=== PATIENT | female | born 1995 | race Two or more races ===

== ENCOUNTER 2024-08-31 11:39 | Emergency (ER) | payer MEDICAID, SELFPAY ==
[2024-08-31 11:51] VITALS: BP 122/76; PULSE 65; RESP 16; TEMP 36.9; O2SAT 100; BMI 30.4
--- NOTE | 2024-08-31 11:58 | XR_ITS ---
Examination: Complete OB ultrasound, less than 14 weeks, transabdominal Date and time of exam: September 01, 1999 2512 0 5:00 PM INDICATIONS: Pelvic pain and discharge 2 weeks Technique: Obstetrical ultrasound images less than 14 weeks performed via transabdominal imaging Findings: A normal shaped single intrauterine gestation is present in the uterus. CRL 1.4 cm corresponds to 7 weeks 5 day gestational age, cardiac motion 171 BPM Ultrasonographic survey of visible and placental structures unremarkable. Amniotic fluid volume appears appropriate for this estimated gestational age. Right ovary 2.9 cm arterial flow Left ovary 2.8 cm arterial flow IMPRESSION: Viable intrauterine gestation 7 weeks 5 days.
--- NOTE | 2024-08-31 11:59 | EDNOTE_ITS ---
<Statement entered by Clementine Bartlett MD - 09/09/24 19:14> As co-signing physician, I was present and available for consult prn. I concur with the plan and care as documented by the midlevel provider. ED OB Contraction Preg RMI/HPI General Chief complaint: General Adult/Misc Complain Stated complaint: PELVIC PAIN, CLEAR STICKY DISCHARGE; PREG Time Seen by Provider: 08/31/24 11:55 Source: patient Arrival date/time: 08/31/24 11:39 29-year-old female with no known medical history presents to the emergency room with a chief complaint of pelvic pain, clear vaginal discharge, vaginal spotting and dysuria x 2 days. Patient is currently 8 weeks and she is a . Mode of arrival: ambulatory Limitations: no limitations Related Data Allergies Allergy/AdvReac Type Severity Reaction Status Date / Time strawberry Allergy Severe Anaphylaxis Verified 08/31/24 11:46 Review of Systems Review of Systems Systems Reviewed: All systems reviewed, normal except as documented Constitutional Constitutional: Reports system reviewed and no additional complaints, except as documented, Denies fatigue, Denies fever(s), Denies headache(s) and Denies weakness Eyes Eyes: Reports system reviewed and no additional complaints, except as documented, Denies blurry vision and Denies change in vision ENT Ears, Nose, Mouth, and Throat: Reports system reviewed and no additional complaints, except as documented, Denies otalgia, Denies headache(s), Denies nasal congestion, Denies throat swelling and Denies vertigo Cardiovascular Cardiovascular: Reports system reviewed and no additional complaints, except as documented, Denies chest pain, Denies dyspnea and Denies dyspnea on exertion Respiratory Respiratory: Reports system reviewed and no additional complaints, except as documented, Denies chest congestion, Denies cough, Denies dyspnea, Denies dyspnea on exertion and Denies wheezing Gastrointestinal Gastrointestinal: Reports system reviewed and no additional complaints, except as documented, Denies abdominal pain, Denies cramping, Denies nausea and Denies vomiting Genitourinary Genitourinary: Reports system reviewed and no additional complaints, except as documented, Reports abnormal vaginal bleeding, Reports dysuria, Reports pelvic pain and Reports vaginal discharge Musculoskeletal Musculoskeletal: Reports system reviewed and no additional complaints, except as documented and Denies back pain Integumentary/Breasts Skin/Breast: Reports system reviewed and no additional complaints, except as documented and Denies wounds Neurologic Neurologic: Reports system reviewed and no additional complaints, except as documented, Denies confusion, Denies headache(s), Denies lack of coordination, Denies vertigo and Denies weakness Psychiatric Psychiatric: Reports system reviewed and no additional complaints, except as documented, Denies anxiety, Denies confusion, Denies depression, Denies paranoia, Denies suicidal ideation and Denies tactile hallucinations Endocrine Endocrine: Reports system reviewed and no additional complaints, except as documented and Denies fatigue Hematologic/Lymphatic Hematologic/Lymphatic: Reports system reviewed and no additional complaints, except as documented and Denies lymphadenopathy Allergic/Immunologic Allergic/Immunologic: Reports system reviewed and no additional complaints, except as documented, Denies throat swelling, Denies urticaria and Denies wheezing Past Medical History Social History SMOKING STATUS: Never smoker ED Exam General Limitations: Present no limitations General appearance: Present alert and in no apparent distress Head Head exam: Present atraumatic Eye Eye exam: Present normal appearance, PERRL and EOMI ENT ENT exam: Present normal exam, normal oropharynx and mucous membranes moist Neck Neck exam: Present normal inspection, full ROM and trachea midline Chest Chest inspection: Present normal inspection and symmetric chest wall rise Respiratory Respiratory exam: Present normal lung sounds bilaterally Cardiovascular Cardiovascular exam: Present regular rate, normal rhythm and normal heart sounds Abdominal Exam Abdominal exam: Present soft and normal bowel sounds Extremities Exam Extremities exam: Present normal inspection and full ROM Back Exam Back exam: Present normal inspection and full ROM Neurological Exam Neurological exam: Present alert, oriented X3 and CN II-XII intact Psychiatric Psychiatric exam: Present normal affect and normal mood Skin Skin exam: Present warm, dry, intact and normal color Course Quality Measures none Orders Category Date Time Status US OB <= 14 weeks fetus Stat Exams 08/31/24 11:58 Completed ABO/RH Type Stat Lab 08/31/24 12:26 Completed Beta HCG,Quantitative Stat Lab 08/31/24 12:26 Completed CBC Stat Lab 08/31/24 12:26 Completed CMP [Comprehensive Metabolic Panel] Stat Lab 08/31/24 12:26 Completed UA [Urinalysis] Stat Lab 08/31/24 12:20 Completed Vital Signs Vital signs: Vital Signs Temperature 98.4 F 08/31/24 11:51 Pulse Rate 65 08/31/24 11:51 Respiratory Rate 16 08/31/24 11:51 Blood Pressure 122/76 08/31/24 11:51 Pulse Oximetry (%) 100 08/31/24 11:51 Oxygen Delivery Method Room Air 08/31/24 11:51 O2 saturation 100% within normal limits Vaginal Bleeding MDM Narrative MDM Narrative: 29-year-old female with no known medical history presents to the emergency room with a chief complaint of pelvic pain, clear vaginal discharge, vaginal spotting and dysuria x 2 days. Patient is currently 8 weeks and she is a . Patient is hemodynamically stable and in no apparent distress Patient has a soft nontender abdomen. Patient has some mild pelvic pain bilaterally. Ultrasound OB was completed and shows a viable intrauterine gestation at 7 weeks and 5 days. heart tones are 171 bpm. hCG levels are 139,680 Patient was discharged and educated to follow-up with primary care provider in the next 24 to 48 hours and return to the emergency room for any evidence of worsening signs or symptoms Patient data External records reviewed:: [facility] previous records Clinical information provided by:: patient Social determinants that could affect healthcare access:: none Patient has the following chronic illnesses:: No chronic illness How is presenting disease/condition affected by chronic disease/condition?: no chronic disease Evaluation data The following diagnostics were reviewed and interpreted by me:: lab results and radiology exam(s) Lab and/or radiology exams considered but not ordered:: Labs radiology exams considered in order Interpretation Summary: OB ultrasound-Findings: A normal shaped single intrauterine gestation is present in the uterus. CRL 1.4 cm corresponds to 7 weeks 5 day gestational age, cardiac motion 171 BPM Ultrasonographic survey of visible and placental structures unremarkable. Amniotic fluid volume appears appropriate for this estimated gestational age. Right ovary 2.9 cm arterial flow Left ovary 2.8 cm arterial flow IMPRESSION: Viable intrauterine gestation 7 weeks 5 days. Medications / Prescriptions Medications or Prescriptions considered but not ordered:: Medication not given Medication administrations:: Medication not given Consultations Consultation(s) initiated? (list below): No Diagnosis Vaginal Bleeding Differential Diagnosis: threatened , dysfunctional u terine bleeding, incomplete , ectopic without intrauterine and vaginal bleeding Most likely diagnosis given after review of the tests above:: Vaginal spotting Admission Indicated Admission indicated?: not indicated Admission Request Was there a request for admission?: No Disposition Plan Disposition Plan: Discharge Discharge Attestation Discharge Attestation: The patient and all family members were given an opportunity to ask questions and understood the discharge instructions. Discharge instructions specifically effects, indications for sooner follow up or return to the emergency department, and the expected course of current diagnosis. Patient condition: Stable Discharge Plan Plan Patient Disposition: HOME (Self Care) Discharge Disposition comment: Stable Prescriptions/Referrals Referrals: No Primary/Family,Physician [Primary Care Provider] - In 1 week Problem List Clinical Impression: Vaginal spotting Patient/Caregiver Discharge Instructions Education Materials: ED Dysfunctional Uterine Bleeding Additional Instructions: Por favor, acuda a feliz ginec?logo/obstetra en las pr?ximas 24 a 48 horas. En beryl momento, feliz embarazo est? en buen estado y tiene 7 semanas y 5 d?as. Karina latidos card?acos son de 171 latidos por minuto, lo cual est? dentro de los l?mites normales. Feliz nivel de hCG en beryl momento es de 139,860. Si observa cualquier signo de empeoramiento de los signos o s?ntomas, acuda a urgencias de inmediato. Print Language: Grenadian Stand Alone Forms: Olivia Award Info., Patient Portal Info Letter PA/COMBUSTION ENGINEER Supervising Physician PA/COMBUSTION ENGINEER Supervising Physician: Dr. BARTLETT
[2024-08-31 12:36] LABS: Basophils # (Auto) 0.0 Thou/mm3 (0.0-0.2); Basophils % (Auto) 0 % (0-2.5); Eosinophils # (Auto) 0.0 Thou/mm3 (0.0-0.5); Eosinophils % (Auto) 0 % (0-10); Hematocrit 37.7 % (36.0-46.0); Hemoglobin 12.7 g/dL (12.0-16.0); Immature Granulocytes Auto 0.09 Thou/mm3 (0.00-0.00); Lymphocytes # (Auto) 2.6 Thou/mm3 (1.0-4.8); Lymphocytes % (Auto) 17 % (10-50); Mean Corpuscular HGB Conc 33.7 g/dl (31.0-37.0); Mean Corpuscular Hemoglobin 27.2 pg (25.0-35.0); Mean Corpuscular Volume 81 fL (80-100); Monocytes # (Auto) 1.0 Thou/mm3 (0.0-0.8); Monocytes % (Auto) 7 % (0-12); Neutrophils # (Auto) 11.2 Thou/mm3 (1.8-7.7); Neutrophils % (Auto) 75 % (37-80); Nucleated Red Blood Cell # 0.00 Thou/mm3 (0.00-0.00); Nucleated Red Blood Cell % 0 /100 WBC (0); Platelet Count 266 Thou/mm3 (140-440); RDW Standard Deviation 41.1 fL (36.4-46.3); Red Blood Count 4.67 Miln/mm3 (4.00-5.20); White Blood Count 15.0 Thou/mm3 (3.6-11.0)
[2024-08-31 12:47] LABS: Collection Type, Urine Clean Catch
[2024-08-31 13:00] LABS: Alanine Aminotransferase 31 U/L (10-49); Albumin, Serum 4.4 gm/dL (3.5-5.0); Albumin/Globulin Ratio 1.8 (1.2-2.2); Alkaline Phosphatase 117 U/L (46-116); Anion Gap 6 (7-16); Aspartate Amino Transferase 21 U/L (0-34); BUN/Creatinine Ratio 8 Ratio (12-20); Bilirubin,Total 0.5 mg/dL (0.3-1.2); Blood Urea Nitrogen 5 mg/dL (9-23); Calcium 9.8 mg/dL (8.3-10.6); Calcium (Corrected) 9.8 mg/dL (8.5-10.1); Carbon Dioxide 26.1 mMol/L (20.0-31.0); Chloride 106 mMol/L (98-107); Creatinine (Component) 0.6 mg/dL (0.6-1.3); Estimated Creatinine Clearance 143.1 mL/min (>60); Globulin 2.4 gm/dL (2.3-3.5); Glucose 81 mg/dL (74-106); Osmolality,Calculated 271 (275-295); Potassium 4.3 mMol/L (3.4-5.1); Sodium 138 mMol/L (136-145); Total Protein 6.8 gm/dL (5.7-8.2); eGFR > 60 See Note
[2024-08-31 13:12] LABS: Bilirubin,Urine Negative (Negative); Blood,Urine Negative (Negative); Color,Urine Lt-Yellow (Lt Yel-Yel); Glucose, Urine Negative (Negative); Ketones,Urine Negative (Negative); Leukocyte Esterase,Urine Negative (Negative); Nitrite,Urine Negative (Negative); PH,Urine 7.5 (5.0-7.0); Protein,Urine Negative (Neg - Trace); RBC,Urine 1 /hpf (0-3); Specific Gravity,Urine 1.010 (1.001-1.035); Squamous Epithelial Cell,Urine 14 /hpf (0-5); Urobilinogen,Urine Negative mg/dL (0.0-1.0); WBC,Urine 4 /hpf (0-5)
[2024-08-31 13:14] LABS: Clarity,Urine Hazy (Clear/Hazy)
[2024-08-31 13:48] LABS: Beta HCG,Quantitative 139860 mIU/mL (<5.0)
== END 2024-08-31 14:53 | disposition home or self-care (01) ==
PROVIDERS: Nurse Practitioner Family; Emergency Provider Emergency Medicine
DX: O20.9 Hemorrhage in early pregnancy, unspecified (principal); Z3A.08 8 weeks gestation of pregnancy
CPT/HCPCS: 36415; 76801; 80053; 81001; 84702; 85025; 86900; 86901; 99284

== ENCOUNTER 2025-02-09 14:34 | Outpatient (AMB) | payer MEDICAID, SELFPAY ==
[2025-02-09 14:55] VITALS: BP 126/75; PULSE 86; RESP 16; TEMP 36.6; O2SAT 97; BMI 32.8
--- NOTE | 2025-02-09 14:55 | AMB.OBINITIA ---
Vital Signs 02/09/25 14:55 Height 1.63 m Height Method Stated Weight 87.203 kg Weight Measurement Method Standing Scale BMI 32.8 BP 126/75 Blood Pressure Source Automatic Cuff Blood Pressure Location Left Upper Arm Position Sitting Respiration 16 Pulse 86 Pulse Source Monitor Temp 97.8 F Temp Source Oral Pulse Oximetry (%) 97 Oxygen Delivery Method Room Air Allergies/Home Meds Allergies & Medications Allergies strawberry Allergy (Severe, Verified 02/09/25 14:56) Anaphylaxis Medication Reconciliation vitamins-iron fumarate 66 mg iron-folic acid 1 mg tablet tab PO 02/09/25 [History Confirmed 02/09/25] Intake Visit Data Collection New Patient or Established: Established Patient (seen at [facility] within 3 years) Reason for Visit:: TRANSFER INITIAL CARE Seen by Clinical Staff ONLY (RN/MA): No Negative Retoucher Required: Yes Negative Retoucher's name/title: VALENTIN GATES Do You Feel Safe at Home: Yes Authorities Contacted: N/A PCP or OBGYN visit in last 3 months: Yes Hx Now: Yes Are you currently on any form of Control: No Last menstrual period: 07/02/24 Pain Present Currently: No Pain Scale Used: Parada-Crenshaw/Numerical Pain scale:: 0 Smoking Status Smoking Status: Never smoker Immunizations Flu Vaccine in the Last 12 Months: No Flu Vaccine Exclusion Criteria: Refused by Patient Questionnaires Covid-19 Vaccine Questionnaire Has patient been vacinated for Covid-19 Have you been vacinated for Covid-19: Yes PHQ-9 PHQ-2 Over the last 2 weeks, how often have you been bothered by any of the following problems? 1. Little interest or pleasure in doing things: not at all 2. Feeling down, depressed, or hopeless: not at all Total score: 0 PHQ-9 3. Trouble falling or staying asleep, or sleeping too much: Not at all 4. Feeling tired or having little energy: Not at all 5. Poor appetite or overeating: Not at all 6. Feeling bad about yourself - or that you are a failure or have let yourself or your family down: Not at all 7. Trouble concentrating on things, such as reading the newspaper or watching television: Not at all 8. Moving or speaking so slowly that other people could have noticed? - Or the opposite - being so fidgety or restless that you have been moving around a lot more than usual: not at all 9. Thoughts that you would be better off or of hurting yourself in some way: Not at all Total score: 0 Source: Developed by Drs. Vin Seo, Sharron Tong, Mike Zhao and colleagues, with an educational ambreen from [employer]. Depression screen completed yes Social History Living Situation History Marital Status: Lives With: Family Housing: House Tobacco History Smoking Status: Never smoker Second Hand Smoke Exposure: No Alcohol History Alcohol Intake: Never Domestic Abuse History Do You Feel Safe at Home: Yes History of Present Illness HPI Narrative Transfer of care from Dr. Kirkland, copious yellow-green vaginal discharge with burning Patient is a at 32 weeks and 0 days gestation, presenting for transfer of care from Dr. Kirkland. She reports copious amounts of yellow-green vaginal discharge with associated burning sensation. She denies any lesions on her perineum. A vaginal swab was obtained during today's visit for evaluation of the discharge. She has a history of one previous resulting in section delivery. Her first was complicated by gestational diabetes. Regarding her gestational diabetes management, the patient is not currently checking her blood sugars at home and requires monitoring to ensure glycemic control is at goal. Her current has been complicated by gestational diabetes. Medical History: - Gestational diabetes Surgical History: - section - Appendectomy Obstetric History: - GPAL: A0 L1 - First : section delivery, complicated by gestational diabetes OB Initial Visit OB Flowsheet OB Flowsheet Initial Weight: Not Recorded Date <del>?</del> EGA Weight BP Alb Glu CTX Pres Fundal ht FHR Mov Dilation Station Effacement Hx Notes Visit Note 02/09/25 <del>?</del> 32w 0d 87.203 kg 126/75 Pl see notes Menstrual History Menstrual reliability: definite Flow: normal Menstrual regularity: regular Monthly: Yes Age at menarche: 13 On control pills at conception: No Associated symptoms (LMP): Denies amenorrhea, nausea, vomiting, fatigue, breast tenderness, urinary frequency, irritability, bloating or other OB History : 2 Para: 1 # of Living Children: 1 Delivery History 1st : Child's name: KEYLANI date: 12/25/18 sex: female Gestational age at delivery (weeks): 39 Delivery type: Delivery complications: NONE History of depression before or after : No Infection History & Risk Evaluation History of STDs: none Genetic Screening & History Genetic Screening/Teratology Counseling - Includes patient, baby's father, or anyone in either family with: 1. Patient's age 35 years or older as of estimated date of delivery: No 2. Thalassemia (Central African, Azeri, Mediterranean, or Background); MCV less than 80: No 3. Neural Tube Defect (Meningomyelocele, Spina Bifida, or Anencephaly): No 4. Congenital Heart Defect: No 5. Down Syndrome: No 6. Peewee-Sachs (Ashkenazi [place]ian, Cajun, Barbadian [place]): No 7. Joaquim Disease (Ashkenazi Presy[place]ian): No 8. Familial Dysautonomia (Ashkenazi [place]ian): No 9. Sickle Cell Disease or Trait (): No 10. Hemophilia or other blood disorders: No 11. Muscular Dystrophy: No 12. Cystic Fibrosis: No 13. [place]'s Chorea: No 14. Mental Retardation/Autism: No 15. Other inherited genetic or chromosomal disorder: No 16. Maternal Metabolic Disorder (EG,TYPE 1 Diabetes, PKU): No 17. Patient or baby's father had a child with defects not listed above: No 18. Recurrent loss or a stillbirth: No 19. Medications (including supplements, vitamins, herbs or otc drugs)/illicit/recreational drugs/alcohol since last menstrual period: No 20. Any other: No Infection History 1. Live with someone with TB or exposed to TB: No 2. Rash or viral illness since last menstrual period: No 3. Hepatitis B,C: No Other (see comments) Source: [employer] Review of Systems Constitutional Constitutional: Denies fatigue Gastrointestinal Gastrointestinal: Denies bloating, Denies nausea and Denies vomiting Genitourinary Genitourinary: Denies amenorrhea and Denies urinary frequency Psychiatric Psychiatric: Denies irritability Endocrine Endocrine: Denies fatigue Exam General General Appearance: alert, in no apparent distress and healthy appearing Head Head exam: atraumatic Neck Neck exam: Present normal inspection and trachea midline Chest Chest inspection: Present normal inspection and symmetric chest wall rise External exam: Present normal external exam; Absent tenderness Neuro Neurological exam: Present oriented X3 Psych Psychiatric exam: Present normal affect and normal mood Office Procedures [facility] Clinic LOC & Office Proc's Nursing/Assessment Patient Status: Established Patient OB Clinic Nursing Assessment: Medication Reconciliation, Update PMH in EMR and Vital Signs OB Clinic Coordination of Care: Complex Care and Chronic Disease 1-5, Consent,records obtained, informed consent, Education Simp Pt/Fam, 1 Ins Authorization, Lab and Imaging orders, Results/Orders obtained and Staff clarify orders Special Needs: Heart tones Established Patient Charge Established Patient Point Assignment: 150 Established Patient Point Charge: EP Level 4 (120-155) Assessment & Plan Diagnosis / Problem List (1) Maternal care for low transverse scar from previous delivery: Status: Acute (2) Supervision of high risk , unspecified, third trimester: Status: Acute (3) Gestational diabetes mellitus (GDM) in childbirth, diet controlled: Status: Acute Plan , intrauterine, 32 weeks 0 days Assessment: Patient is at 32 weeks and 0 days gestation with estimated due date of April 06, 2025 based on last menstrual period of June 30, 2024, which is consistent with early ultrasound. She has a history of one prior section. Plan: - Schedule repeat section for March 30 (7 days before due date) - Referral request submitted for March 30 section, awaiting hospital confirmation - Follow-up in 2 weeks with appointment scheduling History of gestational diabetes Assessment: Patient has a history of gestational diabetes. Recent one-hour glucose tolerance test was 150 mg/dL with A1c of 5.1%. Plan: - Initiate home glucose monitoring with meter to be provided - Check blood glucose 4 times daily: fasting upon waking and 1 hour after each meal - Document glucose readings on provided log sheets - Review glucose logs at next visit in 2 weeks Vaginal discharge Assessment: Patient reports copious yellow-green vaginal discharge with associated burning sensation. Physical examination revealed yellow-green discharge with no visible lesions on the perineum. Plan: - Vaginal swab obtained for testing - Follow-up in one week for results and further management
== END 2025-02-09 15:19 | disposition home or self-care (01) ==
PROVIDERS: Supervising Provider Obstetrics & Gynecology; Visit Provider Obstetrics & Gynecology
DX: O09.293 Supervision of pregnancy with other poor reproductive or obstetric history, third trimester (principal); O34.211 Maternal care for low transverse scar from previous cesarean delivery; O09.893 Supervision of other high risk pregnancies, third trimester; O24.410 Gestational diabetes mellitus in pregnancy, diet controlled; O99.891 Other specified diseases and conditions complicating pregnancy; N89.8 Other specified noninflammatory disorders of vagina; Z3A.32 32 weeks gestation of pregnancy; Z90.49 Acquired absence of other specified parts of digestive tract; Z91.018 Allergy to other foods
CPT/HCPCS: 99214; G0463

== ENCOUNTER 2025-02-24 11:18 | Outpatient (AMB) | payer MEDICAID, SELFPAY ==
[2025-02-24 11:32] VITALS: BP 123/74; PULSE 74; RESP 14; TEMP 36.5; O2SAT 97; BMI 32.6
--- NOTE | 2025-02-24 11:32 | OBCLNT_ITS ---
Vital Signs 02/24/25 11:32 Height 1.63 m Height Method Stated Weight 86.75 kg Weight Measurement Method Standing Scale BMI 32.6 BP 123/74 Blood Pressure Source Automatic Cuff Blood Pressure Location Left Upper Arm Position Sitting Respiration 14 Pulse 74 Pulse Source Monitor Temp 97.7 F Temp Source Oral Pulse Oximetry (%) 97 Oxygen Delivery Method Room Air Allergies/Home Meds Allergies & Medications Allergies strawberry Allergy (Severe, Verified 02/24/25 11:32) Anaphylaxis Medication Reconciliation blood sugar diagnostic (Blood Glucose Test strips) #100 ea 02/09/25 [Rx Confirmed 02/24/25] blood-glucose meter #1 ea 02/09/25 [Rx Confirmed 02/24/25] lancets 21 gauge #100 ea 02/09/25 [Rx Confirmed 02/24/25] vitamins-iron fumarate 66 mg iron-folic acid 1 mg tablet tab PO [History Confirmed 02/24/25] Immunizations Immunizations Flu Vaccine in the Last 12 Months: No Flu Vaccine Exclusion Criteria: Refused by Patient Care OB Visit Log OB Flowsheet Initial Weight: Not Recorded Date -?-?-?-?-?-?-?-?-?-?-?-?- EGA Weight BP Alb Glu CTX Pres Fundal ht FHR Mov Dilation Station Effacement Hx Notes Visit Note 02/09/25 -?-?-?-?-?-?-?-?-?-?-?-?- 32w 0d 87.203 kg 126/75 Pl see notes 02/24/25 -?-?-?-?-?-?-?-?-?-?-?-?- 34w 1d 86.75 kg 123/74 absent cephalic 35 154 active - Maximiliano Esquivel is a 2 para 1 patient at 34 weeks and 1 day gestation with an estimated due date of April 06, 2025, presenting for routine care. - She has a history of gestational diabe jignesh mellitus (GDM) and is currently diet-controlled. - Patient reports her glucose numbers ar e good with readings below 90 fasting and postprandial values in the 90-120 range. - She is desiring a repeat sect ion for delivery. - Patient previously complained of bacte rial vaginosis which was treated at her last visit. - Baby is reported to be active with nor mal heart rate of 154 beats per minute. - Repeat cesarea n section scheduled for March 31 at 12:30 PM - Discontinue glucose monitoring as curr ent levels are well-controlled (all readings below 90 fasting, 120s postprandial) - Group B Strep culture to be performed at 36 weeks gestation at next visit - Follow-up appointment scheduled after physician returns from absence MEGHANN Calculator Estimated Delivery Date Method Current WG Current Estimate 04/06/25 LMP (Certain) 34w 1d Notes Visit Date: 02/09/25 Last Updated by: Isra Ray MD Diagnostic Test Results and Labs: - Hemoglobin (09-29-2024): 12.1 g/dL - Blood type: A-positive - ATP (09-29-2024): non-reactive - HIV (09-29-2024): negative - Hepatitis B (09-29-2024): negative - Rubella (09-29-2024): non-immune - Gonorrhea (09-29-2024): negative - Chlamydia (09-29-2024): negative - Cystic fibrosis (09-29-2024): negative - AFB (09-29-2024): negative - Hemoglobin A1c (09-29-2024): 5.1 - Cystic fibrosis (11-22-2024): negative - AFB (11-22-2024): negative - One-hour glucose tolerance test (12-30-2024): 150 mg/dL Office Procedures [facility] LOC & Office Proc's Nursing/Assessment Patient Status: Established Patient OB Clinic Nursing Assessment: Medication Reconciliation, Update PMH in EMR and Vital Signs OB Clinic Coordination of Care: Complex Care and Chronic Disease 1-5, Consent,records obtained, informed consent, Education Simp Pt/Fam, 1 Ins Authorization, Lab and Imaging orders, Results/Orders obtained and Staff clarify orders Special Needs: Heart tones Established Patient Charge Established Patient Point Assignment: 150 Established Patient Point Charge: EP Level 4 (120-155) Assessment & Plan Diagnosis / Problem List (1) Gestational diabetes mellitus (GDM) in childbirth, diet controlled: Status: Acute (2) Supervision of high risk , unspecified, third trimester: Status: Acute (3) Maternal care for low transverse scar from previous delivery: Status: Acute Plan Problem List - Gestational diabetes mellitus - Bacterial vaginosis - Previous delivery Assessment 33-year-old female, 2 para 1, at 34 weeks and 1 day gestation with estimated due date of April 06, 2025. Patient has history of gestational diabetes mellitus (GDM) which is currently diet-controlled with glucose logs showing acceptable values (below 90 fasting, 120s, 90s, 100s postprandial). History of prior delivery with desire for repeat section, now scheduled for March 31. Previous complaint of bacterial vaginosis was treated. heart rate is 154 bpm, which is normal, and baby is active. Plan - Repeat section scheduled for March 31 at 12:30 PM - Discontinue glucose monitoring as current levels are well-controlled (all readings below 90 fasting, 120s postprandial) - Group B Strep culture to be performed at 36 weeks gestation at next visit - Follow-up appointment scheduled after physician returns from absence 1. Progress Reviewed gestational age (34 weeks 1 day), growth, and heart rate (154 bpm, normal). Planned frequent visits (every 2 weeks until 36 weeks, then weekly). 2. Instructed patient to monitor movements and report decreases immediately. 3. Testing Counseled on routine third-trimester labs per guidelines including GBS culture at 36 weeks. Discussed potential need for ultrasound or monitoring based on risk factors. 4. Preeclampsia Precaution Educated on preeclampsia signs: severe headache, vision changes, right upper quadrant pain, sudden swelling. Advised urgent reporting of symptoms and discussed blood pressure monitoring if high risk. 5. Labor Precautions Reviewed labor signs: regular contractions, pelvic pressure, back pain, bleeding, or fluid leakage. Instructed to seek immediate care for these symptoms. 6. Lifestyle and Delivery Preparation Reinforced vitamins, nutrition, and safe activity. Discussed plan (scheduled repeat section March 31 at 12:30 PM), pain management, and . Advised on labor preparation (e.g., hospital bag) and expectations. 7. Psychosocial Support Assessed emotional well-being and offered resources for mental health or parenting support.
== END 2025-02-24 12:03 | disposition home or self-care (01) ==
LOC: HODSOBC 11:18
PROVIDERS: Supervising Provider Obstetrics & Gynecology; Visit Provider Obstetrics & Gynecology
DX: O09.293 Supervision of pregnancy with other poor reproductive or obstetric history, third trimester (principal); O34.211 Maternal care for low transverse scar from previous cesarean delivery; O09.893 Supervision of other high risk pregnancies, third trimester; O24.410 Gestational diabetes mellitus in pregnancy, diet controlled; Z3A.34 34 weeks gestation of pregnancy; Z91.018 Allergy to other foods
CPT/HCPCS: 99214; G0463